=== PATIENT | male | born 1970 | race Caucasian/White ===

== ENCOUNTER 2019-08-07 17:17 | Emergency (ER) | payer BC, SELFPAY ==
--- NOTE | ~2019-08-07 | XR_ITS ---
EXAMINATION: XR hip LT min 3V w AP pelvis EXAM DATE: 08/07/2019 18:12 INDICATION: No known recent injury provided at this time. Pain of the left hip. TECHNIQUE: Left hip frontal, crosstable lateral and 'frog-leg' projections for interpretation. Fronta l projection pelvis. There is no prior study for comparison. FINDINGS: Smooth left hip femoral head contour, no radiographic evidence of avascular necrosis. Ther e is mild symmetric bilateral hip primary osteoarthritis. There are no acute fractures or dislocation s identified. There is no subcutaneous gas. The soft tissue is unremarkable. There are no radiopa que foreign bodies. IMPRESSION: No acute osseous findings. Reviewed, dictated and finalized at location A. IMPRESSION: No acute osseous findings.
--- NOTE | ~2019-08-07 | US_ITS ---
EXAMINATION: US venous doppler [facility] EXAM DATE: 08/07/2019 18:41 INDICATION: Left groin pain. TECHNIQUE: Multiple grayscale, color flow and Doppler images of the left lower extremity deep venous system were obtained and reviewed. There is no prior study for comparison. FINDINGS: The left common femoral, femoral and profunda veins demonstrate normal color flow, respirat ory variation, augmentation and compressibility. Compressibility, color flow confirmed within the le ft popliteal, posterior tibial, peroneal, and greater saphenous veins. IMPRESSION: No left lower extremity deep venous thrombosis. Reviewed, dictated and finalized at location A.
--- NOTE | 2019-08-07 17:53 | ED.GENADULT ---
HPI - General Adult General Chief complaint: Extremity Injury, Lower Stated complaint: Leg pain Time Seen by Provider: 08/07/19 17:24 Source: patient Mode of arrival: ambulatory Limitations: no limitations History of Present Illness HPI narrative: Patient is a 48-year-old male who presents to emergency department for evaluation of left groin pain that began today patient notes he had gotten out of his truck when he felt the pain which gradually worsened since denies similar occurrence in the past pain wraps around the groin and around the buttocks denies any recent illness other injury or trauma or radicular symptoms or paresthesias took ibuprofen just prior to arrival. On arrival patient in acute pain distress patient otherwise in the room presenting from home Related Data Home Medications Medication Instructions Recorded Confirmed metformin 1,000 mg tablet 1,000 mg PO BID 03/30/19 Allergies Allergy/AdvReac Type Severity Reaction Status Date / Time No Known Allergies Allergy Verified 06/21/19 14:06 Review of Systems Review of Systems: All systems reviewed & are unremarkable except as noted in HPI and below PMFSH Past Medical History Medical History Diabetes HLD (hyperlipidemia) Social History Social History Smoking status: Never smoker Second hand tobacco smoke exposure: No Alcohol intake: current Substance use: never Substance use type: does not use Exam Narrative: Exam Narrative: GENERAL: Well-appearing, well-nourished, and in no acute distress. HEAD: Normocephalic, atraumatic. EYES: PERRLA and EOMI. ENT: Nares clear, no rhinorrhea or epistaxis. Mucous membranes moist. CHEST: Clear to auscultation. No respiratory distress. No wheezes rales or rhonchi HEART: Regular rate and rhythm. No murmur heard. Normal peripheral pulses. ABDOMEN: Soft, nontender,distended EXTREMITIES: Normal range of motion. No edema. Tenderness of the left groin no deformity noted SKIN: Warm, dry, no rash. NEURO: No focal deficits. Alert and oriented x3. Neurovascularly intact. Capillary refill less than 2 seconds PSYCH: Normal mood and affect. Course Course Emergency Course: Patient in the room in no distress aware of case findings treatment plan and diagnosis Vital Signs Vital signs: Vital Signs Temperature 98.5 F 05/04/20 18:06 Pulse Rate 102 H 08/07/19 18:06 Respiratory Rate 20 08/07/19 18:06 Blood Pressure 138/70 08/07/19 18:06 Pulse Oximetry 99 08/07/19 18:06 Temperature 98.5 F 08/07/19 18:06 Pulse Rate 91 08/07/19 18:15 Respiratory Rate 18 08/07/19 18:15 Blood Pressure 136/76 08/07/19 18:15 Pulse Oximetry 100 08/07/19 18:15 Medical Decision Making MDM Narrative Medical decision making narrative: Patients injury or pain is consistent with musculoskeletal etiology. No signs of neurological or vascular compromise on exam. Compartments and tisues are soft without signs of compartment syndrome. Pain is felt appropriate for further evaluation on an outpatient basis. Vital Signs Vital Signs: Vital Signs Temperature 98.5 F 08/07/19 18:06 Pulse Rate 102 H 08/07/19 18:06 Respiratory Rate 20 08/07/19 18:06 Blood Pressure 138/70 08/07/19 18:06 Pulse Oximetry 99 08/07/19 18:06 Temperature 98.5 F 08/07/19 18:06 Pulse Rate 91 08/07/19 18:15 Respiratory Rate 18 08/07/19 18:15 Blood Pressure 136/76 08/07/19 18:15 Pulse Oximetry 100 08/07/19 18:15 Imaging Data Radiologist's impression: ITS Impressions Hip/Pelvis X-Ray 08/07/19 18:13 IMPRESSION: No acute osseous findings. Venous Doppler Study 08/07/19 18:48 IMPRESSION: No left lower extremity deep venous thrombosis. Discharge Plan Discharge Clinical Impression: Left leg pain Patient Disposition: Home, Self-Care Condition: Stable In
[2019-08-07] MEDS: DIAZEPAM 5 MG TABLET PO (18:00)
[2019-08-07 18:06] VITALS: BP 138/70; PULSE 102; RESP 20; TEMP 36.9; O2SAT 99
[2019-08-07 18:15] VITALS: BP 136/76; PULSE 91; RESP 18; O2SAT 100
[2019-08-07] MEDS: MORPHINE SULFATE 10 MG/ML AMP 4 MG IM (19:31)
== END 2019-08-07 19:43 | disposition home or self-care (01) ==
PROVIDERS: Emergency Provider Emergency Medicine; PCP Family Medicine
DX: M79.605 Pain in left leg (principal); E11.9 Type 2 diabetes mellitus without complications; E78.5 Hyperlipidemia, unspecified; Z79.84 Long term (current) use of oral hypoglycemic drugs
CPT/HCPCS: 73502; 93971; 96372; 99284; A9270; J2270

== ENCOUNTER 2019-12-01 21:38 | Emergency (ER) | payer BC, SELFPAY ==
[2019-12-01 21:39] VITALS: BP 131/94; PULSE 98; RESP 18; TEMP 36.7; O2SAT 95
--- NOTE | 2019-12-01 21:46 | ED.AMS ---
HPI - Altered Mental Status General Chief Complaint: Altered Mental Status Stated Complaint: unresponsive Time Seen by Provider: 12/01/19 21:46 History of Present Illness HPI narrative: He was drinking heavily throughout the day today and this evening his girfriend and friend became concerned because they were not able to wake him up. They reportedly started CPR on him. EMS reports that he is difficult to arouse, but did wake up for them and was somewhat combative. No known drug use, they did give him 2 mg narcan without affect. On arrival here he was sleeping. He did wake up and communicate. He was not able to contribute any meaningful history. Related Data Allergies Allergy/AdvReac Type Severity Reaction Status Date / Time No Known Allergies Allergy Verified 12/01/19 21:47 Review of Systems Review of Systems: ROS unobtainable: Yes unobtainable due to mental status PMFSH Past Medical History Medical History Diabetes HLD (hyperlipidemia) Family History Family History Father Diabetes mellitus Hypertension Social History Social History Smoking status: Never smoker Second hand tobacco smoke exposure: No Alcohol intake: current Substance use: never Substance use type: does not use Exam Const: General: healthy appearing, alert and confusion Other: Drowsy HENMT: Head: normal to inspection Resp: Effort & Inspection: normal respiratory effort Auscultation: clear to auscultation bilaterally, no rales, no rhonchi and no wheezes Cardio: Jugular venous distension: no JVD Rate: regular rate Rhythm: regular rhythm Heart sounds: no murmurs GI: Inspection: non-distended GI Palp: Yes Soft to palpation and No Tenderness to palpation present (GI) Skin: General skin exam: normal color Neuro: General: moves all extremities Speech: Abnormal speech present slurred Extrem: General: no edema Psych: Appearance: grossly normal Course Vital Signs Vital signs: Vital Signs Temperature 36.7 C 12/01/19 21:39 Pulse Rate 98 12/01/19 21:39 Respiratory Rate 18 12/01/19 21:39 Blood Pressure 131/94 H 12/01/19 21:39 Pulse Oximetry 95 12/01/19 21:39 Temperature 36.7 C 12/01/19 21:39 Pulse Rate 99 12/02/19 00:00 Respiratory Rate 18 12/02/19 00:00 Blood Pressure 127/80 12/02/19 00:00 Pulse Oximetry 94 12/02/19 00:00 MDM - Altered Mental Status MDM Narrative Medical decision making narrative: He appears to be intoxicated. We will plan to observe until he is safe for discharge with a responsible skin care consultant. Discharge Plan Discharge Clinical Impression: Alcohol intoxication Patient Disposition: Home, Self-Care Condition: Stable Instructions: Alcohol Intoxication (ED) Prescriptions: No Action naproxen 500 mg tablet 500 mg PO BID PRN (Reason: pain) Qty: 7 RF: 0 cyclobenzaprine 10 mg tablet 10 mg PO TID PRN (Reason: muscle spasm) Qty: 20 RF: 0 simvastatin 20 mg tablet 20 mg PO DAILY Qty: 90 RF: 1 metformin 1,000 mg tablet 1,000 mg PO BID Qty: 180 RF: 1 Follow-up/Referrals: Sonya Vieira MD [Primary Care Provider] - Discharge Date/Time: 12/02/19 00:25
[2019-12-01 22:12] VITALS: BP 130/80; PULSE 93; RESP 20; O2SAT 19
[2019-12-01 23:00] VITALS: BP 116/72; PULSE 95; RESP 17; O2SAT 94
[2019-12-02] VITALS: BP 127/80; PULSE 99; RESP 18; O2SAT 94
== END 2019-12-02 00:25 | disposition home or self-care (01) ==
PROVIDERS: Emergency Provider Emergency Medicine; PCP Family Medicine
DX: F10.129 Alcohol abuse with intoxication, unspecified (principal); E11.9 Type 2 diabetes mellitus without complications; E78.5 Hyperlipidemia, unspecified; Z79.84 Long term (current) use of oral hypoglycemic drugs
CPT/HCPCS: 99281

== ENCOUNTER 2020-02-12 09:53 | Emergency (ER) | payer BC, SELFPAY ==
[2020-02-12] VITALS (16 sets, daily range): BP systolic 127–158; BP diastolic 80–95; PULSE 74–105; RESP 12–22; TEMP 36.1; O2SAT 92–100
--- NOTE | ~2020-02-12 | XR_ITS ---
EXAMINATION: XR chest 1V portable DATE: 02/12/2020 10:42 INDICATION: Shortness of breath. Fever. TECHNIQUE: A single frontal view of the chest was obtained. COMPARISON: Chest 2 views 10/31/2018, CT abdomen and pelvis 08/24/2018 FINDINGS: There is a pneumatocele with adjacent mild atelectasis in right middle lobe. No pleural eff usion or pneumothorax. The heart size is normal. IMPRESSION: 1. Pneumatocele with adjacent mild atelectasis in right middle lobe. Reviewed, dictated and finalized at location B. FICIAL LEATHER CALENDER OPERATOR
--- NOTE | 2020-02-12 10:03 | ECG_ITS ---
Measurements Intervals [place] Rate: 104 P: 64 [place]: 159 QRS: 64 QRSD: 101 T: 43 QT: 332 QTc: 437 Interpretive Statements SINUS TACHYCARDIA DELAYED PRECORDIAL R/S TRANSITION MINIMAL Q WAVES- INFERIOR LEADS ABNORMAL ECG Electronically Signed On 02-12-2020 13:41:27 ARTIFICIAL LEATHER CALENDER OPERATOR by Rickey Muñoz D.O.
[2020-02-12 10:16] LABS: Basophils Percent Auto 0.2 % (0.2-1.2); Eosinophils Absolute Auto 0.1 K/mm3 (0-0.3); Eosinophils Percent Auto 1.9 % (0-4.4); Hematocrit 42.4 % (42.0-52.0); Hemoglobin 14.5 g/dL (14.0-18.0); Immature Granulocyte Absolute 0.01 K/mm3 (0.00-0.031); Immature Granulocyte Percent A 0.2 % (0-0.5); Lymphocytes Absolute Auto 1.32 K/mm3 (0.9-3.2); Lymphocytes Percent Auto 31.1 % (18.3-44.2); Mean Corpuscular HGB Conc 34.2 g/dl (32-36); Mean Corpuscular Hemoglobin 27.9 pg (26-34); Mean Corpuscular Volume 81.5 fl (80-100); Mean Platelet Volume 9.3 fl (7.4-10.4); Monocytes Absolute Auto 0.3 K/mm3 (0.1-0.6); Neutrophils Absolute Auto 2.5 K/mm3 (1.3-6.7); Neutrophils Percent Auto 58.6 % (45.5-73.1); Platelet Count Result 169 k/mm3 (150-375); Red Cell Distribution Width 12.4 % (11.5-14.5); White Blood Count 4.3 K/mm3 (4.5-10.0)
[2020-02-12 10:29] LABS: Alanine Aminotransferase 42 U/L (4-50); Albumin Level 4.1 g/dL (3.5-5.1); Alkaline Phosphatase 57 U/L (38-126); Anion Gap 8 mmol/L (8-16); Aspartate Amino Transferase 30 U/L (17-59); Bilirubin,Total 0.4 mg/dL (0.2-1.3); Blood Urea Nitrogen 7 mg/dL (9-20); Carbon Dioxide 31 mmol/L (22-30); Chloride 100 mmol/L (98-107); Estimated CRCL calculation 131 ml/min; Estimated Glomerular Filt Rate > 60; Glucose 208 mg/dL (75-110); Potassium 4.2 mmol/L (3.4-5.0); Sodium 139 mmol/L (137-145)
[2020-02-12] MEDS: SODIUM CHLORIDE 0.9% IV 1,000 ML 999 ML IV CONT (10:34)
--- NOTE | 2020-02-12 11:13 | ED.GENADULT ---
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 . Patient denies vomiting does note a few loose stools with subjective fever and body aches. Related Data Allergies Allergy/AdvReac Type Severity Reaction Status Date / Time No Known Allergies Allergy Verified 12/01/19 21:47 Review of Systems Review of Systems: All systems reviewed & are unremarkable except as noted in HPI and below PMFSH Past Medical History Medical History (Updated 02/12/20 @ 11:17 by Chema Agosto PA-C) Diabetes HLD (hyperlipidemia) Family History Family History Father Diabetes mellitus Hypertension Social History Social History Smoking status: Never smoker Second hand tobacco smoke exposure: No Alcohol intake: current Substance use: never Substance use type: does not use Gender identity (if verbalized by the patient): Male Exam Narrative: Exam Narrative: GENERAL: Well-appearing, well-nourished, and in no acute distress. HEAD: Normocephalic, atraumatic. EYES: PERRLA and EOMI. ENT: Nares clear, no rhinorrhea or epistaxis. Mucous membranes moist. CHEST: Clear to auscultation. No respiratory distress. No wheezes rales or rhonchi HEART: Regular rate and rhythm. No murmur heard. EXTREMITIES: Normal range of motion. No edema. SKIN: Warm, dry, no rash. NEURO: No focal deficits. Alert and oriented x3. PSYCH: Normal mood and affect. Course Course Emergency Course: Patient is in the room in no distress normal vital signs no hypoxemia will be sent home with follow-up with primary care tested for Covid felt appropriate for outpatient reevaluation hydrated in the emergency department Vital Signs Vital signs: Vital Signs Temperature 97.0 F L 02/12/20 09:58 Pulse Rate 105 H 11/09/20 09:58 Respiratory Rate 18 02/12/20 09:58 Blood Pressure 152/82 H 02/12/20 09:58 Pulse Oximetry 99 02/12/20 09:58 Temperature 97.0 F L 02/12/20 09:58 Pulse Rate 94 02/12/20 10:45 Respiratory Rate 18 02/12/20 10:45 Blood Pressure 132/80 02/12/20 10:45 Pulse Oximetry 100 02/12/20 10:45 Medical Decision Making MDM Narrative Medical decision making narrative: Patient with symptoms most consistent with Covid will be sent home pending results will self quarantine ABCs stable provided with reasons to return felt appropriate for outpatient reevaluation Vital Signs Vital Signs: Vital Signs Temperature 97.0 F L 02/12/20 09:58 Pulse Rate 105 H 02/12/20 09:58 Respiratory Rate 18 02/12/20 09:58 Blood Pressure 152/82 H 02/12/20 09:58 Pulse Oximetry 99 02/12/20 09:58 Temperature 97.0 F L 02/12/20 09:58 Pulse Rate 94 02/12/20 10:45 Respiratory Rate 18 02/12/20 10:45 Blood Pressure 132/80 02/12/20 10:45 Pulse Oximetry 100 02/12/20 10:45 Lab Data Result diagrams: 02/12/20 10:08 02/12/20 10:08 Labs: Lab Results 02/12/20 02/12/20 02/12/20 Range/Units 10:08 10:08 10:38 WBC 4.3 L (4.5-10.0) K/mm3 RBC 5.20 (4.6-6.20) M/mm3 Hgb 14.5 (14.0-18.0) g/dL Hct 42.4 (42.0-52.0) % MCV 81.5 (80-100) fl MCH 27.9 (26-34) pg MCHC 34.2 (32-36) g/dl RDW 12.4 (11.5-14.5) % Plt Count 169 (150-375) k/mm3 MPV 9.3 (7.4-10.4) fl Immature Gran % (Auto) 0.2 (0-0.5) % Neut % (Auto) 58.6 (45.5-73.1) % Lymph % (Auto) 31.1 (18.3-44.2) % [place] % (Auto) 8.0 (2.6-8.5) %
[2020-02-12 20:39] LABS: SARS-CoV-2 RNA PCR Positive
== END 2020-02-12 11:50 | disposition home or self-care (01) ==
PROVIDERS: Emergency Medicine Emergency Medical Services; Emergency Provider Emergency Medicine; PCP Family Medicine
DX: U07.1 COVID-19 (principal); E11.9 Type 2 diabetes mellitus without complications; E78.5 Hyperlipidemia, unspecified; R91.8 Other nonspecific abnormal finding of lung field; R00.0 Tachycardia, unspecified; R94.31 Abnormal electrocardiogram [ECG] [EKG]
CPT/HCPCS: 36415; 71045; 80053; 85025; 87081; 87635; 87880; 93005; 96360; 99283; C9803; J7030; U0003

== ENCOUNTER 2020-04-12 20:32 | Observation (INO) | payer BC, SELFPAY ==
--- NOTE | ~2020-04-12 | XR_ITS ---
EXAMINATION: XR abdomen obstructive series DATE: 04/13/2020 08:02 INDICATION: Small bowel obstruction. TECHNIQUE: Supine and upright views of the abdomen. FINDINGS: Comparison to 04/12/2020 The visualized lung parenchyma is normal.. There is dilated small bowel in the left mid abdomen with air-fluid levels on decubitus view. Gas and stool are seen throughout the colon to the level of the r ectum. There is no free air. NG tube in the stomach. IMPRESSION: 1. Mildly dilated small bowel left mid abdomen with air-fluid levels, ileus versus partial obstructi on.. Reviewed, dictated and finalized at location A. FORCE CONSULTANT IMPRESSION: 1. Mildly dilated small bowel left mid abdomen with air-fluid levels, ileus ve rsus partial obstruction..
--- NOTE | ~2020-04-12 | CT_ITS ---
EXAMINATION: CT abdomen pelvis w con EXAM DATE: 04/12/2020 22:23 INDICATION: Abdominal pain. TECHNIQUE: Spiral CT of the abdomen and pelvis was performed following intravenous injection of 100 m L Omnipaque 350. Axial, coronal and sagittal images were reviewed. The dose-length product (DLP) fo r this examination was 1386.91 mGy-cm. The exposure was tailored according to patient size (auto mA exposure control), and iterative reconstruction (ASIR) was used as additional dose reduction techniqu e. Comparison is made to prior examination from 08/24/2018. FINDINGS: The liver, spleen, adrenal glands and pancreas are unremarkable. The gallbladder is contra cted but otherwise unremarkable. Portal and splenic veins are patent. Kidneys enhance symmetrically . There is no hydronephrosis. The prostate is unremarkable. Calcified vasa deferentia, could indic ate diabetes. The bladder is unremarkable. There is no retroperitoneal or pelvic lymphadenopathy. Moderately distended jejunum with relative transition point indicated on axial image 112, some eviden ce of stasis. No bowel wall edema. Could be adhesion related mid small bowel obstruction. The ileum d istal to the transition point is nearly collapsed. Moderately distended stomach with food. The append ix is normal. There is expected amount of colonic stool. No free intraperitoneal gas. The heart is normal in size. There are no pericardial or pleural effusions. Basilar lung cystic spaces unchan ged. There are no osteoblastic or osteolytic lesions identified. IMPRESSION: Moderately dilated jejunum with relative transition point identified, small bowel obstruc tion. Reviewed, dictated and finalized at location A. ING HEALTHCARE PRACTITIONER IMPRESSION: Moderately dilated jejunum with relative transition point identifie d, small bowel obstruction.
--- NOTE | ~2020-04-12 | XR_ITS ---
EXAMINATION: XR abdomen NG/feed tube insert EXAM DATE: 04/12/2020 23:51 INDICATION: Nasogastric tube placement. Small bowel obstruction. TECHNIQUE: Frontal projection(s) of the abdomen for interpretation. There is no prior study for donavon smith. FINDINGS: Feeding tube tip projects over left upper quadrant, expected position. Small bowel dilation seen on CT is under appreciated on this x-ray. There are bony degenerative changes. There is no orga nomegaly. IMPRESSION: Feeding tube in position. Reviewed, dictated and finalized at location G. D LEAD IMPRESSION: Feeding tube in position.
[2020-04-12 20:37] VITALS: BP 194/84; PULSE 87; RESP 20; TEMP 36.8; O2SAT 98
--- NOTE | 2020-04-12 20:42 | ECG_ITS ---
Measurements Intervals [place] Rate: 96 P: 26 [place]: 150 QRS: 85 QRSD: 118 T: 45 QT: 348 QTc: 440 Interpretive Statements SINUS RHYTHM INTRAVENTRICULAR CONDUCTION DELAY DELAYED PRECORDIAL R/S TRANSITION BASELINE ARTIFACT- I, II, III, AVR, AVL, AVF, V1-V6 BORDERLINE ECG Electronically Signed On 04-13-2020 7:21:28 COMPUTERIZED TABLE CUTTER by Rickey Muñoz D.O.
--- NOTE | 2020-04-12 20:59 | ED.ABDPAIN ---
HPI - Abdominal Pain General Chief Complaint: Abdominal Pain Stated Complaint: chest pain Time Seen by Provider: 04/12/20 20:54 Source: RN notes reviewed History of Present Illness HPI narrative: Patient presents to emergency department from home for abdominal pain patient states has been having intermittent abdominal pain in the upper abdomen for the past several days that got severe tonight after eating. Pain is located across the upper abdomen described as sharp and stabbing denies any fevers or chills chest pain shortness of breath nausea vomiting diarrhea or any other symptoms. Patient does request no narcotic pain medication at this time Related Data Allergies Allergy/AdvReac Type Severity Reaction Status Date / Time No Known Allergies Allergy Verified 12/01/19 21:47 Review of Systems Review of Systems: Narrative: Gen.: Denies fevers or chills ENT: Denies congestion Respiratory: Denies shortness of breath or cough CV: Denies chest pain or palpitations GI: See HPI denies burning, urgency, frequency or hematuria Musculoskeletal: Denies back pain or muscle pain Neuro: Denies numbness, tingling, weakness or focal weakness Skin: Denies rash Except as documented, all other systems reviewed and negative [facility] Past Medical History Medical History (Updated 04/13/20 @ 00:07 by Blaze Lawrence DO) Diabetes HLD (hyperlipidemia) Family History Family History Father Diabetes mellitus Hypertension Social History Social History Smoking status: Never smoker Second hand tobacco smoke exposure: No Alcohol intake: current Substance use: never Substance use type: does not use Gender identity (if verbalized by the patient): Male Exam Narrative: Exam Narrative: APPEARANCE: No acute distress, nontoxic, resting in bed HEENT: Normocephalic, atraumatic, OMM RESPIRATORY: No respiratory distress, clear to auscultation bilaterally with no rhonchi wheezing or rales CARDIOVASCULAR: RRR s murmur ABDOMINAL: Soft, nondistended tender to palpation diffusely throughout the abdomen with increased tenderness in the epigastric, right upper quadrant left upper quadrant no rebound or guarding MUSCULOSKELETAl: Moves all extremities. No clubbing, cyanosis or edema. NEURO: Awake and alert. Following commands, speech normal, no focal deficits SKIN:: Warm, dry. Normal Color PSYCHIATRIC: Normal affect/mood Course Course Emergency Course: Discussed with Dr. Alegre presentation work-up. This time question G-tube agrees with plan for consult with admission to hospital service Discussed with Dr. Rhoades presentation work-up agrees with admission at this time Discussed with patient and family results of workup and diagnosis. Discussed need for admission. Patient and family understand and agree to current treatment plan Vital Signs Vital signs: Vital Signs Temperature 98.2 F 04/12/20 20:37 Pulse Rate 87 04/12/20 20:37 Respiratory Rate 20 04/12/20 20:37 Blood Pressure 194/84 H 04/12/20 20:37 Pulse Oximetry 98 04/12/20 20:37 Temperature 98.2 F 04/12/20 20:37 Pulse Rate 87 04/12/20 20:37 Respiratory Rate 20 04/12/20 20:37 Blood Pressure 194/84 H 04/12/20 20:37 Pulse Oximetry 98 04/12/20 20:37 MDM - Abdominal Pain Lab Data Result diagrams: 04/12/20 21:14 04/12/20 21:44 Labs: Lab Results 04/12/20 04/12/20 04/12/20 Range/Units 21:14 21:44 21:44 WBC 5.8 (4.5-10.0) K/mm3 RBC 5.43 (4.6-6.20) M/mm3 Hgb 15.4 (14.0-18.0) g/dL Hct 44.4 (42.0-52.0) % MCV 81.8 (80-100) fl MCH 28.4 (26-34) pg MCHC 34.7 (32-36) g/dl RDW 12.6 (11.5-14.5) % Plt Count 272 D (150-375) k/mm3 MPV 9.6 (7.4-10.4) fl Immature Gran % (Auto) 0.2 (0-0.5) % Neut % (Auto) 52.2 (45.5-73.1) % Lymph % (Auto) 38.3 (18.3-44.2) %
[2020-04-12 21:20] LABS: Basophils Percent Auto 0.5 % (0.2-1.2); Eosinophils Absolute Auto 0.1 K/mm3 (0-0.3); Eosinophils Percent Auto 1.4 % (0-4.4); Hematocrit 44.4 % (42.0-52.0); Hemoglobin 15.4 g/dL (14.0-18.0); Immature Granulocyte Absolute 0.01 K/mm3 (0.00-0.031); Immature Granulocyte Percent A 0.2 % (0-0.5); Lymphocytes Absolute Auto 2.22 K/mm3 (0.9-3.2); Lymphocytes Percent Auto 38.3 % (18.3-44.2); Mean Corpuscular HGB Conc 34.7 g/dl (32-36); Mean Corpuscular Hemoglobin 28.4 pg (26-34); Mean Corpuscular Volume 81.8 fl (80-100); Mean Platelet Volume 9.6 fl (7.4-10.4); Monocytes Absolute Auto 0.4 K/mm3 (0.1-0.6); Monocytes Percent Auto 7.4 % (2.6-8.5); Neutrophils Percent Auto 52.2 % (45.5-73.1); Platelet Count Result 272 k/mm3 (150-375); Red Blood Count 5.43 M/mm3 (4.6-6.20); Red Cell Distribution Width 12.6 % (11.5-14.5); White Blood Count 5.8 K/mm3 (4.5-10.0)
[2020-04-12] MEDS: SODIUM CHLORIDE 0.9% IV 1,000 ML 999 ML IV CONT (21:28)
[2020-04-12] MEDS: PANTOPRAZOLE SODIUM IV 40 MG VIAL IV PUSH (21:28)
[2020-04-12 21:59] LABS: Partial Thromboplastin Time 26.8 SECONDS (22.3-36.8); Prothrombin Time 13.4 Seconds (11.1-14.7)
[2020-04-12 22:02] LABS: Alanine Aminotransferase 44 U/L (4-50); Albumin Level 4.1 g/dL (3.5-5.1); Alkaline Phosphatase 69 U/L (38-126); Anion Gap 9 mmol/L (8-16); Aspartate Amino Transferase 35 U/L (17-59); Bilirubin,Total 0.5 mg/dL (0.2-1.3); Blood Urea Nitrogen 12 mg/dL (9-20); Carbon Dioxide 29 mmol/L (22-30); Chloride 96 mmol/L (98-107); Estimated CRCL calculation 131 ml/min; Estimated Glomerular Filt Rate > 60; Glucose 283 mg/dL (75-110); Lipase 131 U/L (23-300); Sodium 134 mmol/L (137-145)
[2020-04-12 23:43] LABS: Lactic Acid Reflex 1.4 mmol/L (0.7-2.1)
[2020-04-13] VITALS (7 sets, daily range): BP systolic 146–189; BP diastolic 86–109; PULSE 81–88; RESP 16–19; TEMP 36–36.6; O2SAT 95–99; BMI 33.2
[2020-04-13 00:24] LABS: Add Urine Microscopic? YES; Appearance Urine Clear (Clear); Bilirubin Urine Negative (Negative); Blood Urine Negative (Negative); Color Urine Straw (Yellow); Glucose Urine UA 3+ mg/dL (Negative); Ketones Urine Negative (Negative); Leukocyte Esterase Ur Negative LEU/UL (Negative); Nitrate Urine Negative (Negative); Protein Urine 1+ mg/dL (Negative); Urobilinogen Urine Negative mg/dL (<2.0); WBC Urine 0-3 /hpf
[2020-04-13 00:25] LABS: Squamous Epithelial Cell Urine Rare /hpf (Few)
--- NOTE | 2020-04-13 01:45 | ADMGEN ---
This patient, Quinton Escalante, was admitted to Medical Room 258-01. Patient/family oriented to hospital policies and general routines including ID bracelet, bed and alarms, visiting hours, pain management, procedures, bathroom and other care routines, personal items, smoking policy, room service/diet, and visiting hours. Information on how to activate the Rapid Response Team has been discussed. Patient/Family are encouraged to report perceived risks to care and to ask questions if they do not understand what they are told or what they should do.
[2020-04-13] MEDS: SODIUM CHLORIDE 0.9% IV 1,000 ML 125 ML IV CONT (02:18)
[2020-04-13 06:07] LABS: Basophils Percent Auto 0.3 % (0.2-1.2); Eosinophils Absolute Auto 0.1 K/mm3 (0-0.3); Eosinophils Percent Auto 1.1 % (0-4.4); Hematocrit 42.3 % (42.0-52.0); Hemoglobin 14.4 g/dL (14.0-18.0); Immature Granulocyte Absolute 0.02 K/mm3 (0.00-0.031); Immature Granulocyte Percent A 0.3 % (0-0.5); Lymphocytes Percent Auto 22.9 % (18.3-44.2); Mean Corpuscular Hemoglobin 27.9 pg (26-34); Mean Corpuscular Volume 81.8 fl (80-100); Mean Platelet Volume 9.4 fl (7.4-10.4); Monocytes Absolute Auto 0.5 K/mm3 (0.1-0.6); Monocytes Percent Auto 7.8 % (2.6-8.5); Neutrophils Absolute Auto 4.4 K/mm3 (1.3-6.7); Neutrophils Percent Auto 67.6 % (45.5-73.1); Platelet Count Result 239 k/mm3 (150-375); Red Blood Count 5.17 M/mm3 (4.6-6.20); Red Cell Distribution Width 12.6 % (11.5-14.5); White Blood Count 6.6 K/mm3 (4.5-10.0)
[2020-04-13 06:29] LABS: Alanine Aminotransferase 41 U/L (4-50); Albumin Level 3.9 g/dL (3.5-5.1); Alkaline Phosphatase 66 U/L (38-126); Anion Gap 6 mmol/L (8-16); Aspartate Amino Transferase 35 U/L (17-59); Bilirubin,Total 0.4 mg/dL (0.2-1.3); Blood Urea Nitrogen 9 mg/dL (9-20); Calcium 8.9 mg/dL (8.4-10.2); Carbon Dioxide 29 mmol/L (22-30); Chloride 100 mmol/L (98-107); Estimated CRCL calculation 130 ml/min; Estimated Glomerular Filt Rate > 60; Glucose 211 mg/dL (75-110); Potassium 3.9 mmol/L (3.4-5.0); Sodium 135 mmol/L (137-145)
[2020-04-13] MEDS: PANTOPRAZOLE SODIUM IV 40 MG VIAL IV PUSH (08:10)
--- NOTE | 2020-04-13 09:27 | PM.IMHP ---
H&P: HPI History of Present Illness Date/Time: 04/13/20 09:27 Chief Complaint: Abdominal pain Narrative: Quinton Escalante is a 49 year old male with a history of diabetes with no past medical history of abdominal surgeries who presented emergency room for abdominal pain. He states this pain was around his epigastric area and went from the left to the right for the last couple days. He describes his pain as an aching pain that happened intermittently. Last night he had spaghetti and meatballs for dinner as well as 1 pour of bourbon when he started having worsening pain that did not resolve which prompted him to come into the emergency room. He has some nausea with that but no vomiting or diarrhea. His last bowel movement was and was normal for him. He has been passing a lot of gas here. He has no history of abdominal surgeries or small-bowel obstructions. He has absolutely no symptoms now other than throat pain from the NG tube. He denies chest pain, shortness of breath, fevers, chills, cough, abdominal pain, or headache. He states he drinks about wanted to glasses of bourbon a week and has never had any issues with alcohol withdrawal or excessive alcohol intake. He denies any use of drugs, including marijuana. He has diabetes and states he does not know his last A1c but his glucose runs about 120. Review of Systems Review of Systems: All systems reviewed & are unremarkable except as noted in HPI and below PMFSH Past Medical History Medical History (Updated 04/13/20 @ 10:10 by Prema Licona PA-C) Diabetes History of cataract HLD (hyperlipidemia) Surgical History Surgical History (Updated 04/13/20 @ 10:10 by Prema Licona PA-C) History of cataract surgery Family History Family History Father Diabetes mellitus Hypertension Mother Diabetes mellitus Heart disease Social History Social History (Updated 04/13/20 @ 10:11 by Prema Licona PA-C) Social History: Patient drinks 1-2 alcoholic drinks a week and does not smoke. He denies any drug use including marijuana. He wishes to be a full code. In the event that he is unable to make decisions for himself he elects Feng and John as both his POA. He works as a delivery truck driver Smoking status: Never smoker Second hand tobacco smoke exposure: No Alcohol intake: current Drinks per week: 2 Substance use: never Substance use type: does not use Gender identity (if verbalized by the patient): Male Spiritual care concerns: No Meds Home Medications and Allergies Home Medications Medication Instructions Recorded Confirmed Type metformin 1,000 mg tablet 1,000 mg PO BID #180 tablet 10/21/19 04/13/20 Rx Allergies Allergy/AdvReac Type Severity Reaction Status Date / Time No Known Allergies Allergy Verified 04/13/20 03:48 Vital Signs Vital Signs - 24 hr 04/12/20 20:37 04/13/20 00:59 04/13/20 01:32 Temperature 98.2 F Pulse Rate 87 88 Respiratory Rate 20 19 Blood Pressure 194/84 H 189/109 H 154/91 H Pulse Oximetry 98 98 04/13/20 01:40 04/13/20 01:59 04/13/20 06:00 Temperature 98 F 96.8 F L 96.8 F L Pulse Rate 88 81 86 Respiratory Rate 19 16 18 Blood Pressure 159/94 H 158/86 H 146/86 H Pulse Oximetry 97 99 98 Exam Narrative: Exam Narrative: General:Well developed well nourished patient HEENT: Normocephalic, atraumatic, PERRL, Sclerae anicteric, NG tube in place Neck: Supple Resp: CTA Heart: RRR with no murmurs Abd: Soft, nontender. No pain to palpation. Positive bowel sounds Skin: Warm and dry Extremities: No swelling, erythema or pain to palpation Neuro: Alert and Oriented x4 . CN 2-12 intact. No focal neurological deficits. H&P: Results Labs Labs: Short CBC 04/12/20 04/13/20 Range/Units 21:14 05:25 WBC 5.8 6.6 (4.5-10.0) K/mm3 Hgb 15.4 14.4 (14.0-18.0) g/dL Hct 44.4 42.3 (42.0-52.0) % Plt Count 272
--- NOTE | 2020-04-13 12:02 | PM.CNGS ---
Assessment and Plan Assessment and plan (1) SBO (small bowel obstruction): Code(s): K56.609 - Unspecified intestinal obstruction, unspecified as to partial versus complete obstruction Status: Acute Assessment and Plan: exam benign, +bowel fxn, will clamp NG, if no recurrent sx ok to start clears and ADAT (2) Diabetes: Code(s): E11.9 - Type 2 diabetes mellitus without complications Status: Acute Assessment and Plan: needs better control, will need to f/u c PCP s/p dc History of Present Illness Consult details Consult date: 04/13/20 Reason for consult: abdominal pain Requesting physician: Prema Licona PA-C Narrative: The patient is a 49-year-old male that presented to the emergency department complaining of severe crampy abdominal pain. The patient reports that the pain is been going on for the last few days and progressively worsening. The patient reports some nausea however denies any emesis. The patient also reports decreased appetite during this episode. Patient denies any previous episodes in the past. The patient does report bowel function, however reports it is less than usual. Review of Systems Constitutional: Constitutional: Denies anorexia, Denies chills, Reports fatigue, Denies fever(s), Denies headache(s), Reports lethargy, Denies malaise, Reports poor appetite and Denies weakness Eyes: Eyes: Reports no additional eye complaints ENT: Reports system reviewed and no additional complaints, except as documented Cardiovascular: Cardiovascular: Reports no additional cardiovascular complaints Respiratory: Respiratory: Reports no additional respiratory complaints Gastrointestinal: Gastrointestinal: Reports as per HPI Genitourinary: Genitourinary: Reports no additional male genitourinary complaints Musculoskeletal: Musculoskeletal: Reports no additional musculoskeletal complaints Integumentary/Breasts: Skin/Breast: Reports system reviewed and no additional complaints, except as docu Neurologic: Reports system reviewed and no additional complaints, except as documented Psychiatric: Psychiatric: Reports no additional psychiatric complaints Endocrine: Endocrine: Reports no additional endocrine complaints Hematologic/Lymphatic: Hematologic/Lymphatic: Reports no additional hematologic/lymphatic complaints Allergic/Immunologic: Allergic/Immunologic: Reports no additional allergic/immunologic complaints PMFSH Past Medical History Medical History Diabetes History of cataract HLD (hyperlipidemia) Surgical History Surgical History History of cataract surgery Family History Family History Father Diabetes mellitus Hypertension Mother Diabetes mellitus Heart disease Social History Social History Social History: Patient drinks 1-2 alcoholic drinks a week and does not smoke. He denies any drug use including marijuana. He wishes to be a full code. In the event that he is unable to make decisions for himself he elects Feng and John as both his POA. He works as a [employer] truck driver Smoking status: Never smoker Second hand tobacco smoke exposure: No Alcohol intake: current Drinks per week: 2 Substance use: never Substance use type: does not use Gender identity (if verbalized by the patient): Male Spiritual care concerns: No Meds Home Medications and Allergies Home Medications Medication Instructions Recorded Confirmed Type metformin 1,000 mg tablet 1,000 mg PO BID #180 tablet 10/21/19 04/13/20 Rx Allergies Allergy/AdvReac Type Severity Reaction Status Date / Time No Known Allergies Allergy Verified 04/13/20 03:48 Vital Signs Vital Signs - 24 hr 04/12/20 20:37 04/13/20 00:59 04/13/20 01:32 Temperature 36.8 C Puls
[2020-04-13] MEDS: PHENOL/SOD PHENO SPRAY CHERRY (*BKC) 1 SPRAY MUCOUS MEM (13:04)
[2020-04-13 14:24] LABS: Glucose Point of Care 168 (65-105)
--- NOTE | 2020-04-13 15:18 | PM.DS ---
DS: Admitting Diagnosis Admitting Diagnosis Admitting Diagnosis: SBO DS: Discharge Diagnosis Discharge Diagnosis (1) SBO (small bowel obstruction): Code(s): K56.609 - Unspecified intestinal obstruction, unspecified as to partial versus complete obstruction Status: Acute Assessment and Plan: CT shows evidence of a small-bowel obstruction which is consistent with the patient's history of abdominal pain -NG tube was placed in the ER in the patient has had no symptoms since -Day of discharge pt had positive bowel sounds and is passing gas -NG was removed after xray showed improving sbo vs ileus -pt tolerated his diet and sx okayed him for discharge (2) Diabetes: Code(s): E11.9 - Type 2 diabetes mellitus without complications Status: Acute Assessment and Plan: Last glucose 245 -continue home metformin (3) Elevated BP without diagnosis of hypertension: Code(s): R03.0 - Elevated blood-pressure reading, without diagnosis of hypertension Status: Acute Assessment and Plan: last bp 157/88 at discharge but was higher earlier in the stay. Pt should follow up with pcp outside of acute hospitalized illness to see if he would benefit from blood pressure medication. DS: Summary Hospital Course Hospital Course: Patient is a 49-year-old male who presented emergency room for abdominal pain found to have a small-bowel obstruction. Patient was admitted to the hospitalist service and NG tube was placed. He had no hx of abdominal surgeries and was low risk for requiring sx. the NG improved the patient's symptoms significantly. The day of discharge this was removed and his diet was advanced as tolerated and he was able to eat solid foods without abdominal discomfort. Please see above for further details. The patient did have episodes of high blood pressure and he is to follow-up with his primary care physician about this outside of an acute hospitalized illness. Overall, the patient had a lot of improvement. Surgery saw the patient as well and agreed with the treatment plan. The patient improved quicker than expected and was educated about the worrisome signs and symptoms come back to emergency room for and was discharged in stable condition. Status at Discharge Functional status at discharge: independent ambulation Overall status at discharge: patient is back to baseline Time Spent with Patient Time attestation: Total time spent providing and/or coordinating discharge services:36 m in Time spent: Greater than 30 minutes Exam Narrative: Exam Narrative: General:Well developed well nourished patient HEENT: Normocephalic, atraumatic, PERRL, Sclerae anicteric, NG tube in place Neck: Supple Resp: CTA Heart: RRR with no murmurs Abd: Soft, nontender. No pain to palpation. Positive bowel sounds Skin: Warm and dry Extremities: No swelling, erythema or pain to palpation Neuro: Alert and Oriented x4 . CN 2-12 intact. No focal neurological deficits. DS: Data Data Completed and Pending Labs on day of discharge: Labs from last 24 hours 04/13/20 04/13/20 04/13/20 14:11 05:25 05:25 WBC 6.6 RBC 5.17 Hgb 14.4 Hct 42.3 MCV 81.8 MCH 27.9 MCHC 34.0 RDW 12.6 Plt Count 239 MPV 9.4 Immature Gran % (Auto) 0.3 Neut % (Auto) 67.6 Lymph % (Auto) 22.9 [place] % (Auto) 7.8 Eos % (Auto) 1.1 Baso % (Auto) 0.3 Lymph # (Auto) 1.50 [place] # (Auto) 0.5 Eos # (Auto) 0.1 Baso # (Auto) 0.0 Abs Immat Gran (auto) 0.02 Absolute Neuts (auto) 4.4 Absolute Nucleated RBC 0.0 Nucleated RBC % 0.0 PT INR APTT Sodium 135 L Potassium 3.9 Chloride 100 Carbon Dioxide 29 Anion Gap 6 L BUN 9 Creatinine 0.80 Estim Creat Clear Calc 130 Estimated GFR > 60 Glucose 211 H POC Capillary Glucose 168 H Lactic Acid Calcium 8.9 Total Bilirubin 0.4 AST 35 ALT 41 Alkaline Phosphatase
[2020-04-13 18:07] LABS: Glucose Point of Care 245 (65-105)
[2020-04-13] MEDS: INSULIN ASPART (*BKC) 100 UNITS/ML SUB-Q (18:09)
--- NOTE | 2020-04-13 19:35 | PC.NURSE ---
IV removed at time of discharge.
== END 2020-04-13 19:30 | disposition home or self-care (01) ==
LOC: ANHED 04-13 00:07 → ANH2MED 04-13 07:44
PROVIDERS: Admitting Provider Family Medicine; Emergency Provider Emergency Medicine; PCP Family Medicine; Visit Provider Physician Assistant
DX: K56.609 Unspecified intestinal obstruction, unspecified as to partial versus complete obstruction (principal); E11.9 Type 2 diabetes mellitus without complications; E78.5 Hyperlipidemia, unspecified; Z79.84 Long term (current) use of oral hypoglycemic drugs
CPT/HCPCS: 36415; 74019; 74177; 80053; 81001; 83605; 83690; 85025; 85610; 85730; 93005; 96361; 96374; 96375; 96376; 99285; A9270; C9113; G0378; J0131; J1815; J7030; Q9967

== ENCOUNTER 2020-06-20 08:58 | Outpatient (CLI) | payer BC, SELFPAY ==
--- NOTE | ~2020-06-20 | CT_ITS ---
EXAMINATION: CT abdomen pelvis wo con DATE: 06/20/2020 09:19 INDICATION: Ventral hernia without obstruction or gangrene. TECHNIQUE: Computed tomography (CT) of the abdomen and pelvis was performed without intravenous contr ast. Automated exposure control and iterative reconstruction technique were employed. The dose-length product was 1314.70 mGy-cm. COMPARISON: 04/12/2020 FINDINGS: No significant interval change in thin-walled cystic lung disease at the bilateral lung bases. Heart size is normal. Liver, gallbladder, spleen, pancreas and bilateral adrenal glands are normal. Symmetr ic mild perinephric stranding surrounding the otherwise normal bilateral kidneys. Very small fat-cont aining umbilical hernia. Small fat-containing left inguinal hernia. Mild diffuse fatty infiltration o f the wall of the colon and distal ileum likely related to body habitus. No bowel obstruction. Bladde r and prostate are unremarkable. No free intraperitoneal gas or fluid. No pathologically enlarged abd ominal or pelvic lymphadenopathy. Moderate lower lumbar spondylosis. IMPRESSION: 1. Small fat-containing umbilical and left inguinal hernias. 2. Stable appearance of cystic bibasilar lung disease which could be related to emphysema or pneumato heena related to prior infection. Reviewed, dictated and finalized at location B. IMPRESSION: 1. Small fat-containing umbilical and left inguinal hernias. 2. Stable appearance of cystic bibasilar lung disease which could be related to emphysema or pneumatoceles related to prior infection.
== END 2020-06-20 08:59 | disposition home or self-care (01) ==
PROVIDERS: PCP Family Medicine; Visit Provider Physician Assistant
DX: K43.9 Ventral hernia without obstruction or gangrene (principal); K42.9 Umbilical hernia without obstruction or gangrene; R91.8 Other nonspecific abnormal finding of lung field
CPT/HCPCS: 74176

== ENCOUNTER → 2020-07-06 05:31 | Outpatient (CLI) | payer BC, SELFPAY ==
[2020-07-06 19:34] LABS: SARS-CoV-2 RNA PCR Negative
== END ==
PROVIDERS: PCP Family Medicine; Visit Provider Internal Medicine Gastroenterology
DX: Z01.812 Encounter for preprocedural laboratory examination (principal); Z20.822 Contact with and (suspected) exposure to COVID-19
CPT/HCPCS: C9803; U0003; U0005

== ENCOUNTER 2020-07-09 00:54 | Day surgery (SDC) | payer BC, SELFPAY ==
[2020-06-25 14:40] VITALS: BMI 34.1
[2020-07-09 07:34] VITALS: BP 122/78; PULSE 87; RESP 18; TEMP 36.3; O2SAT 98; BMI 32.5
[2020-07-09] MEDS: LACTATED RINGERS 1,000 ML 150 ML IV CONT (07:45)
[2020-07-09 07:46] LABS: Glucose Point of Care 220 (65-105)
--- NOTE | 2020-07-09 08:16 | WPDANESEPPF ---
Anes - Initial Pre Proc Eval Procedure: Operation Date: 07/09/20 09:00 Proposed Procedures p Screening Colonoscopy - Pranay Martinez MD Date/Time: 07/09/20 08:16 Surgeon: Pranay Martinez MD Pre Op Diagnosis: neoplasm screening Patient Data Age: 49 Gender: M Height: 6 ft 2 in Weight: 115 kg Last Vital Signs Temp 97.3 F L 07/09/20 07:34 Pulse 87 07/09/20 07:34 Resp 18 07/09/20 07:34 BP 122/78 07/09/20 07:34 Pulse Ox 98 07/09/20 07:34 Allergies Allergy/AdvReac Type Severity Reaction Status Date / Time No Known Allergies Allergy Verified 07/09/20 07:33 Home Medications Medication Instructions Recorded Confirmed Type simvastatin 20 mg tablet 20 mg PO DAILY 04/22/20 06/25/20 History sildenafil 100 mg tablet 100 mg PO DAILY PRN #10 tablet 04/24/20 06/25/20 Rx lisinopril 5 mg tablet See Rx Instructions .ROUTE 05/24/20 06/25/20 Rx .COMPLEX #30 each metformin 1,000 mg tablet 1,000 mg PO BID #180 tablet 07/01/20 Rx Laboratory Tests 07/09/20 07:43 POC Capillary Glucose 220 mg/dl H mg/dl (65-105) Patient hx anesthesia problems: none Family hx anesthesia problems: none PMFSH Past Medical History Medical History Diabetes History of cataract HLD (hyperlipidemia) Hypertension SBO (small bowel obstruction) Surgical History Surgical History History of cataract surgery Family History Family History Father Diabetes mellitus Hypertension Mother Diabetes mellitus Heart disease Social History Social History Social History: Patient drinks 1-2 alcoholic drinks a week and does not smoke. He denies any drug use including marijuana. He wishes to be a full code. In the event that he is unable to make decisions for himself he elects Feng and John as both his POA. He works as a local truck driver Smoking status: Never smoker Second hand tobacco smoke exposure: No Alcohol intake: current Drinks per week: 3 Substance use: never Substance use type: does not use Living arrangements: alone Gender identity (if verbalized by the patient): Male Spiritual care concerns: No Anes - Eval Final PreProcedure Day of Procedure 07/09/20 08:16 Patient weight: obese Heart: regular rate and rhythm Lungs: clear to auscultation Airway: Mallampati scale class II Neurological: alert and oriented Last oral intake: >/= 8 hours ASA classification: III Emergent: no Anesthetic plan: proceed Anesthesia type and monitoring: general GIVS and standard monitoring Informed Consent: The patient's anesthetic plan and its attendant risks and benefits were discussed with the patient/family/POA. Questions were solicited and answers provided to the satisfaction of the patient/family/POA.
--- NOTE | 2020-07-09 08:21 | PM.HPGS ---
History of Present Illness History of Present Illness Consent: Risks, benefits, and alternatives have been discussed and questions answered. Patient agrees to proceed with procedure. Chief complaint: neoplasm screening Narrative: Quinton Escalante is a 49 year old male referred for colon cancer screening Review of Systems Review of Systems: All systems reviewed & are unremarkable except as noted in HPI and below PMFSH Past Medical History Medical History Diabetes History of cataract HLD (hyperlipidemia) Hypertension SBO (small bowel obstruction) Surgical History Surgical History History of cataract surgery Family History Family History Father Diabetes mellitus Hypertension Mother Diabetes mellitus Heart disease Social History Social History Social History: Patient drinks 1-2 alcoholic drinks a week and does not smoke. He denies any drug use including marijuana. He wishes to be a full code. In the event that he is unable to make decisions for himself he elects Feng and John as both his POA. He works as a regional company truck driver Smoking status: Never smoker Second hand tobacco smoke exposure: No Alcohol intake: current Drinks per week: 3 Substance use: never Substance use type: does not use Living arrangements: alone Gender identity (if verbalized by the patient): Male Spiritual care concerns: No Meds Home Medications and Allergies Home Medications Medication Instructions Recorded Confirmed Type simvastatin 20 mg tablet 20 mg PO DAILY 04/22/20 06/25/20 History sildenafil 100 mg tablet 100 mg PO DAILY PRN #10 tablet 04/24/20 06/25/20 Rx lisinopril 5 mg tablet See Rx Instructions .ROUTE 05/24/20 06/25/20 Rx .COMPLEX #30 each metformin 1,000 mg tablet 1,000 mg PO BID #180 tablet 07/01/20 Rx Allergies Allergy/AdvReac Type Severity Reaction Status Date / Time No Known Allergies Allergy Verified 07/09/20 07:33 Vital Signs Vital Signs - 24 hr 07/09/20 07:34 Temperature 36.3 C L Pulse Rate 87 Respiratory Rate 18 Blood Pressure 122/78 Pulse Oximetry 98 Exam Const: General: alert Orientation/consciousness: patient oriented x3 Resp: Auscultation: clear to auscultation bilaterally Cardio: Rhythm: regular rhythm GI: GI Palp: Yes Soft to palpation and No Tenderness to palpation present (GI) Neuro: General: patient oriented x3 Assessment and Plan Assessment and plan (1) Colon cancer screening: Code(s): Z12.11 - Encounter for screening for malignant neoplasm of colon Status: Acute Assessment and Plan: Colonoscopy with possible biopsy or polypectomy or cautery or injection of substances.
[2020-07-09 08:52] VITALS: BP 114/65; PULSE 86; RESP 18; O2SAT 100
[2020-07-09 09:02] VITALS: BP 118/73; PULSE 83; RESP 18; O2SAT 100
[2020-07-09 09:12] VITALS: BP 113/75; PULSE 80; RESP 18; O2SAT 100
== END 2020-07-09 09:25 | disposition home or self-care (01) ==
PROVIDERS: PCP Family Medicine; Visit Provider Internal Medicine Gastroenterology
PROC: 0DJD8ZZ Inspection of Lower Intestinal Tract, Via Natural or Artificial Opening Endoscopic (ICD-10-PCS; CPT 45378; principal; 2020-07-09 09:00)
DX: Z12.11 Encounter for screening for malignant neoplasm of colon (principal); E11.9 Type 2 diabetes mellitus without complications; E78.5 Hyperlipidemia, unspecified; I10 Essential (primary) hypertension; Z79.84 Long term (current) use of oral hypoglycemic drugs; E66.9 Obesity, unspecified; Z68.32 Body mass index [BMI] 32.0-32.9, adult
CPT/HCPCS: 45378; J2001; J2704; J7120

== ENCOUNTER 2021-01-06 16:34 | Emergency (ER) | payer BC, SELFPAY ==
--- NOTE | ~2021-01-06 | CT_ITS ---
EXAMINATION: CT facial bones wo [facility] EXAM DATE: 01/06/2021 17:16 INDICATION: right maxillary trauma. TECHNIQUE: Spiral CT of the facial bones was acquired in the axial plane without contrast. Coronal reformatted images were also reviewed. The dose-length product (DLP) for this examination was 501.59 mGy-cm. The exposure was tailored according to patient size, and iterative reconstruction (ASIR) wa s used as additional dose reduction technique. There is no prior study for comparison. FINDINGS: There are no displaced acute nasal bone fractures. The mandible, sinuses and orbits are in tact. The orbits, globes and extraocular muscles are unremarkable. The visualized sinuses and mas toid air cells are well aerated. There is a right cheek soft tissue hematoma. There is moderate lef tward nasal septal deviation. The patient has had bilateral lens surgery. IMPRESSION: 1. No acute facial fracture. 2. Right cheek hematoma. Reviewed, dictated and finalized at location A.
[2021-01-06 16:36] VITALS: BP 170/95; PULSE 90; RESP 17; O2SAT 99
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
[2021-01-06 18:13] VITALS: BP 149/78; PULSE 75; RESP 16; O2SAT 100
== END 2021-01-06 18:14 | disposition home or self-care (01) ==
PROVIDERS: Emergency Provider Emergency Medicine; PCP Family Medicine
DX: S00.83XA Contusion of other part of head, initial encounter (principal); E11.9 Type 2 diabetes mellitus without complications; E78.5 Hyperlipidemia, unspecified; I10 Essential (primary) hypertension; Z98.49 Cataract extraction status, unspecified eye; Y08.02XA Assault by strike by baseball bat, initial encounter
CPT/HCPCS: 70486; 99284